=== PATIENT | female | born 2000 ===

== ENCOUNTER 2023-08-18 14:00 | Outpatient (RCR) | payer OTHER | END 2023-08-30 | LOC: PT 14:00 | PROVIDERS: ATTEND Specialist | DX: M23.91 Unspecified internal derangement of right knee (principal) ==

== ENCOUNTER 2023-09-01 08:46 | Outpatient (RCR) | payer OTHER | END 2023-09-29 | LOC: PT 08:46 | PROVIDERS: ATTEND Specialist | DX: M23.91 Unspecified internal derangement of right knee (principal) ==